=== PATIENT | male | born 1945 | race Caucasian/White ===

== ENCOUNTER 2019-11-01 14:12 | Emergency (ER) | payer OTHER ==
[~2019-11-01] VITALS: Ht 160 cm; Wt 72.6 kg
[2019-11-01 14:12] VITALS: BP_SYST 119
--- NOTE | 2019-11-01 14:45 | NUR ---
Patient to ER bed 08 to gown for evaluation. Side rails up.
--- NOTE | 2019-11-01 14:46 | NUR ---
Pt brought by self , A&Ox4, pt presents to ER with L hip pain radiating to L leg after carrying a case of water , skin pink and warm , cap refill <3, VSS.
--- NOTE | 2019-11-01 14:50 | NUR ---
Vane Bryan at bedside examining patient
[2019-11-01] MEDS ORDERED: KETOROLAC TROMETHAMINE 30 MG VIAL IM ONE (15:30)
[2019-11-01 16:13] VITALS: BP_SYST 119
--- NOTE | 2019-11-01 16:15 | NUR ---
Patient given written and verbal discharge instructions and verbalizes understanding. ER MD discussed with patient the results and treatment provided. Patient in stable condition. ID arm band removed. Rx of Naproxen given. Patient educated on pain management and to follow up with PMD. Pain Scale 3/10 tolerable for patient . Opportunity for questions provided and answered. Medication side effect fact sheet provided.
== END 2019-11-01 16:15 | disposition home or self-care (01) ==
LOC: SED 14:12
DX: M70.72 Other bursitis of hip, left hip (principal); E11.9 Type 2 diabetes mellitus without complications; I10 Essential (primary) hypertension; Z87.430 Personal history of prostatic dysplasia
CPT/HCPCS: 73502; 96372; 99283; J1885